=== PATIENT | female | born 1980 | race African-American/Black ===

== ENCOUNTER 2023-06-17 08:03 | Emergency (ER) | payer MEDICAID ==
[~2023-06-17] VITALS: Ht 165.1 cm; Wt 90.0 kg
[~2023-06-17 08:03] MED LIST: AMLO5TAB88 MT; ASPI-1497 MT; BENA10TA74 MT; FERR325T6 MT; FLUT9.9S BOTHNSTRLS; GLIM2TAB30 MT; LORA10TA7 MT; METF-416 MT; PNV1TABL76 MT; PROP20TA7 MT; PROP50TA3 MT; SULF1TAB48 MT
[2023-06-17 08:07] VITALS: O2SAT 99
[2023-06-17] MEDS ORDERED: ONDANSETRON HCL 4MG/2ML INJ IV STA (08:54)
[2023-06-17] MEDS ORDERED: KETOROLAC 60MG/2ML VIAL IM STA (08:54)
[2023-06-17 09:53] LABS: HEMOGLOBIN. 9.8 g/dL (12.0-16.0); MEAN CORPUSCULAR HEMOGLOBIN 24.6 pg (28.0-32.0); MEAN CORPUSCULAR HGB CONC 31.6 g/dL (31.0-37.0); MEAN CORPUSCULAR VOLUME 77.9 fL (81.0-99.0); MEAN PLATELET VOLUME 8.3 fl (7.4-10.4); PLATELET 396 x1000/uL (130-400); RED BLOOD CELL COUNT 3.99 mill/uL (4.2-5.4); RED CELL DISTRIBUTION WIDTH 15.7 % (11.6-14.6); WHITE BLOOD COUNT 13.6 x1000/uL (4.5-11.0)
[2023-06-17 09:57] LABS: DIFFERENTIAL COMMENT 1
[2023-06-17 10:11] LABS: ALANINE AMINOTRANSFERASE 16 IU/L (10-49); ALBUMIN 4.2 g/dL (3.2-4.8); ASPARTATE AMINOTRANSFERASE 13 IU/L (<34); BILIRUBIN TOTAL 0.5 mg/dL (0.1-1.0); CALCIUM 9.2 mg/dL (8.7-10.4); CARBON DIOXIDE 28 mEq/L (21-32); CHLORIDE 99 mEq/L (98-107); CREATININE 0.6 mg/dL (0.6-1.0); GLUCOSE 282 mg/dL (70-105); POTASSIUM 3.8 mEq/L (3.5-5.1); PROTEIN TOTAL 7.2 g/dL (6.0-8.3); SODIUM 134 mEq/L (136-145); UREA NITROGEN BLOOD 6 mg/dL (9-23)
[2023-06-17] MEDS ORDERED: AMLODIPINE 10MG TABLET PO ONE (11:00)
[2023-06-17 11:07] LABS: CLARITY URINE CLEAR (CLEAR); COLOR URINE ORANGE (YELLOW); GLUCOSE URINE 3+ (NEGATIVE); KETONES URINE 3+ (NEGATIVE); LEUKOCYTE ESTERASE URINE NEGATIVE (NEGATIVE); NITRITE URINE NEGATIVE (NEGATIVE); OCCULT BLOOD URINE 3+ (NEGATIVE); PROTEIN URINE 1+ (NEGATIVE); SPECIFIC GRAVITY URINE 1.024 (1.005-1.030)
[2023-06-17] MEDS ORDERED: SODIUM CHLORIDE 0.9% 1,000 ML IV ONE (11:30)
[2023-06-17 12:01] LABS: MICROCYTOSIS 1+; PLATELET ESTIMATE NORMAL
[2023-06-17 12:14] LABS: RBC URINE TNTC /hpf (0-2); SQUAMOUS EPITHELIAL CELL URINE 1+ /lpf (RARE/1+)
[2023-06-17 12:15] LABS: BACTERIA URINE TRACE; WBC URINE 0-2 /hpf (0-2)
[2023-06-17 15:16] LABS: HCG SCREEN NEGATIVE
[2023-06-17 16:54] VITALS: BP 150/78; PULSE 86; RESP 16; TEMP 98
== END 2023-06-17 16:56 | disposition home or self-care (01) ==
LOC: ER 08:03
DX: R10.13 Epigastric pain (principal); I10 Essential (primary) hypertension; E11.9 Type 2 diabetes mellitus without complications; Z88.8 Allergy status to other drugs, medicaments and biological substances
CPT/HCPCS: 80053; 81003; 84703; 83690; 85025; 36415; 74176; 96361; 96372; 96374; 99285; J1885; J2405; Z7610 ×4

== ENCOUNTER 2023-06-18 15:04 | Inpatient (IN) | payer MEDICAID ==
[~2023-06-18] VITALS: Ht 172.7 cm; Wt 113.4 kg
[2023-06-18] MEDS ORDERED: ONDANSETRON HCL 4MG/2ML INJ IV STA (15:10)
[2023-06-18] MEDS ORDERED: MORPHINE SULFATE 4 MG/ML CPJ (NOT FOR IM USE) IV STA (15:10)
[2023-06-18] MEDS ORDERED: SODIUM CHLORIDE 0.9% 1,000 ML IV ONE (15:15)
[2023-06-18] MEDS ORDERED: KETOROLAC 15MG/ML VIAL IV ONE (15:45)
[2023-06-18 18:31] LABS: BASOPHILS % 0.4 % (0.0-2.0); DIFFERENTIAL COMMENT 0; EOSINOPHILS % 0.4 % (0.0-5.0); HEMATOCRIT. 32.6 % (36.0-48.0); HEMOGLOBIN. 10.4 g/dL (12.0-16.0); LYMPHOCYTES % 8.4 % (20.0-50.0); MEAN CORPUSCULAR HEMOGLOBIN 24.9 pg (28.0-32.0); MEAN CORPUSCULAR HGB CONC 31.9 g/dL (31.0-37.0); MEAN CORPUSCULAR VOLUME 77.9 fL (81.0-99.0); MEAN PLATELET VOLUME 8.2 fl (7.4-10.4); MONOCYTES % 2.7 % (2.0-8.0); NEUTROPHILS % 88.1 % (40.0-76.0); PLATELET 418 x1000/uL (130-400); RED BLOOD CELL COUNT 4.18 mill/uL (4.2-5.4); RED CELL DISTRIBUTION WIDTH 15.9 % (11.6-14.6); WHITE BLOOD COUNT 12.9 x1000/uL (4.5-11.0)
[2023-06-18 18:54] LABS: ALANINE AMINOTRANSFERASE 19 IU/L (10-49); ALBUMIN 4.3 g/dL (3.2-4.8); ASPARTATE AMINOTRANSFERASE 16 IU/L (<34); BILIRUBIN TOTAL 0.4 mg/dL (0.1-1.0); CALCIUM 9.1 mg/dL (8.7-10.4); CARBON DIOXIDE 26 mEq/L (21-32); CHLORIDE 99 mEq/L (98-107); CREATININE 0.6 mg/dL (0.6-1.0); GLUCOSE 249 mg/dL (70-105); POTASSIUM 3.2 mEq/L (3.5-5.1); PROTEIN TOTAL 7.5 g/dL (6.0-8.3); SODIUM 135 mEq/L (136-145); UREA NITROGEN BLOOD 5 mg/dL (9-23)
[2023-06-18 19:04] LABS: HCG SCREEN NEGATIVE
[2023-06-18] MEDS ORDERED: KETOROLAC 15MG/ML VIAL IV SCH (21:30)
[2023-06-18] MEDS ORDERED: ONDANSETRON HCL 4MG/2ML INJ IV SCH (21:30)
[2023-06-19] VITALS (8 sets, daily range): BP systolic 146–175; BP diastolic 74–111; PULSE 18–90; RESP 18–20; TEMP 97–98.6
[2023-06-19] MEDS ORDERED: AMLODIPINE 10MG TABLET PO NR (01:00)
[2023-06-19] MEDS ORDERED: DEXT 5%/0.45% NACL 1000ML 1,000 ML IV SCH (01:15)
[2023-06-19] MEDS: ONDANSETRON HCL 4MG/2ML INJ IV PRN ×4 (01:17→15:10)
[2023-06-19] MEDS: BENAZEPRIL 10MG TABLET PO SCH ×3 (03:02→21:16)
[2023-06-19] MEDS ORDERED: GLIMEPIRIDE 2MG TABLET PO SCH (07:00)
[2023-06-19] MEDS: PROPRANOLOL HCL 10MG TABLET PO SCH ×2 (08:56→18:23)
[2023-06-19] MEDS: METFORMIN HCL 500MG TABLET PO SCH ×3 (08:57→18:22)
[2023-06-19] MEDS: AMLODIPINE 10MG TABLET PO SCH (08:57)
[2023-06-19] MEDS: LORATADINE 10MG TABLET PO SCH (08:58)
[2023-06-19] MEDS ORDERED: POTASSIUM CHLORIDE 20MEQ TABLET SR PO SCH (09:00)
[2023-06-19 12:04] LABS: CLARITY URINE SL HAZY (CLEAR); COLOR URINE YELLOW (YELLOW); GLUCOSE URINE 2+ (NEGATIVE); KETONES URINE 2+ (NEGATIVE); PROTEIN URINE NEGATIVE (NEGATIVE)
[2023-06-19 12:05] LABS: LEUKOCYTE ESTERASE URINE NEGATIVE (NEGATIVE); NITRITE URINE NEGATIVE (NEGATIVE); OCCULT BLOOD URINE 3+ (NEGATIVE); UROBILINOGEN URINE 0.2 E.U./dL (0.2-1.0)
[2023-06-19 12:17] LABS: BACTERIA URINE 1+; RBC URINE 50-100 /hpf (0-2); SQUAMOUS EPITHELIAL CELL URINE 1+ /lpf (RARE/1+); YEAST URINE NONE SEEN
[2023-06-19] MEDS ORDERED: DEXTROSE 50% WATER 50ML SYRINGE IV PRN (13:30)
[2023-06-19] MEDS ORDERED: BENAZEPRIL 10MG TABLET PO SCH (13:45)
[2023-06-19] MEDS ORDERED: BENAZEPRIL 10MG TABLET PO NR (13:53)
[2023-06-19] MEDS ORDERED: SODIUM CHLORIDE 0.9% 1,000 ML IV SCH (14:15)
[2023-06-19] MEDS: BLOOD SUGAR DIAGNOSTIC STRIP TEST SCH ×2 (17:35→21:20)
[2023-06-19] MEDS: METOCLOPRAMIDE HCL 10MG/2ML VIAL IV SCH ×2 (18:24→23:57)
[2023-06-19] MEDS: INSULIN LISPRO 100 UNITS/ML SUBCUT SCH ×2 (18:31→21:19)
[2023-06-20] VITALS (7 sets, daily range): BP systolic 108–171; BP diastolic 77–104; PULSE 64–85; RESP 17–20; TEMP 98–98.8; O2SAT 100
[2023-06-20] MEDS ORDERED: CLONIDINE 0.1MG TABLET PO PRN (00:45)
[2023-06-20] MEDS ORDERED: CLONIDINE 0.2MG TABLET PO PRN (04:30)
[2023-06-20] MEDS: METOCLOPRAMIDE HCL 10MG/2ML VIAL IV SCH ×2 (06:48→12:02)
[2023-06-20] MEDS: BLOOD SUGAR DIAGNOSTIC STRIP TEST SCH ×2 (06:48→12:02)
[2023-06-20] MEDS: METFORMIN HCL 500MG TABLET PO SCH (08:12)
[2023-06-20] MEDS: INSULIN LISPRO 100 UNITS/ML SUBCUT SCH ×2 (08:24→13:47)
[2023-06-20] MEDS: PROPRANOLOL HCL 10MG TABLET PO SCH (09:09)
[2023-06-20] MEDS: AMLODIPINE 10MG TABLET PO SCH (09:11)
[2023-06-20] MEDS: LORATADINE 10MG TABLET PO SCH (09:12)
[2023-06-20] MEDS: BENAZEPRIL 10MG TABLET PO SCH (09:12)
== END 2023-06-21 05:00 | disposition home or self-care (01) | DRG 48 ==
LOC: ER 15:04 → MICUSO 22:01 → EDBEDREQTM 22:05 → EDBEDREQ 22:05 → 6WST 06-19 00:09
PROVIDERS: ADMIT Internal Medicine; ATTEND Internal Medicine
DX: E11.43 Type 2 diabetes mellitus with diabetic autonomic (poly)neuropathy (principal); E87.1 Hypo-osmolality and hyponatremia; D64.9 Anemia, unspecified; D72.829 Elevated white blood cell count, unspecified; E11.65 Type 2 diabetes mellitus with hyperglycemia; E66.9 Obesity, unspecified; K52.9 Noninfective gastroenteritis and colitis, unspecified; K31.84 Gastroparesis; I10 Essential (primary) hypertension; I16.0 Hypertensive urgency; Z79.4 Long term (current) use of insulin; Z68.38 Body mass index [BMI] 38.0-38.9, adult
CPT/HCPCS: 36415; 76830; 76856; 80053; 81003; 82962; 84703; 85025; 99285; J1815; J2405; J2765; J7030

== ENCOUNTER 2024-07-21 04:02 | Inpatient (IN) | payer MEDICAID ==
[~2024-07-21] VITALS: Ht 172.7 cm; Wt 108.9 kg
[~2024-07-21 04:02] MED LIST changes: -BENA10TA74 MT; +INSU100I28 SQ; +LOSA100T33 MT; +METO-293 MT; +SITA100T11 MT; -SULF1TAB48 MT
[2024-07-21] MEDS ORDERED: PANTOPRAZOLE SODIUM 40 MG/VIAL IV STA (04:41)
[2024-07-21] MEDS ORDERED: METOCLOPRAMIDE HCL 10MG/2ML VIAL IV STA (04:41)
[2024-07-21] MEDS ORDERED: MORPHINE SULFATE 4 MG/ML INJ (FOR IV/IM USE) IV STA (04:41)
[2024-07-21 05:50] LABS: HEMATOCRIT. 34.2 % (36.0-48.0); MEAN CORPUSCULAR HGB CONC 32.1 g/dL (31.0-37.0); MEAN CORPUSCULAR VOLUME 81.1 fL (81.0-99.0); MEAN PLATELET VOLUME 8.6 fl (7.4-10.4); PLATELET 345 x1000/uL (130-400); RED BLOOD CELL COUNT 4.22 mill/uL (4.2-5.4); RED CELL DISTRIBUTION WIDTH 16.1 % (11.6-14.6); WHITE BLOOD COUNT 13.2 x1000/uL (4.5-11.0)
[2024-07-21 05:54] LABS: CHLORIDE 102 mEq/L (98-107); SODIUM 139 mEq/L (136-145)
[2024-07-21 05:56] LABS: CALCIUM 8.9 mg/dL (8.7-10.4); CARBON DIOXIDE 22 mEq/L (21-32)
[2024-07-21 06:01] LABS: GLUCOSE 379 mg/dL (70-105); UREA NITROGEN BLOOD 17 mg/dL (9-23)
[2024-07-21 06:03] LABS: ALANINE AMINOTRANSFERASE 22 IU/L (10-49); ALBUMIN 4.3 g/dL (3.2-4.8); ASPARTATE AMINOTRANSFERASE 19 IU/L (<34); BILIRUBIN DIRECT 0.3 mg/dL (<=3.0); BILIRUBIN TOTAL 0.8 mg/dL (0.1-1.0); PROTEIN TOTAL 7.7 g/dL (6.0-8.3)
[2024-07-21 06:09] LABS: CREATININE 1.7 mg/dL (0.6-1.0); ETHANOL BLOOD < 10 mg/dL (<10)
[2024-07-21 06:28] LABS: DIFFERENTIAL COMMENT 1
[2024-07-21] MEDS: METOCLOPRAMIDE HCL 10MG/2ML VIAL IV NR (06:32)
[2024-07-21] MEDS: MORPHINE SULFATE 4 MG/ML INJ (FOR IV/IM USE) IV NR (06:33)
[2024-07-21] MEDS: SODIUM CHLORIDE 0.9% 1,000 ML IV ONE (06:33)
[2024-07-21] MEDS: PANTOPRAZOLE SODIUM 40 MG/VIAL IV NR (06:56)
[2024-07-21 07:10] LABS: HCG SCREEN NEGATIVE
[2024-07-21] MEDS: HYDRALAZINE 20MG/ML VIAL IV NR (07:45)
[2024-07-21 08:14] LABS: PLATELET ESTIMATE NORMAL
[2024-07-21] MEDS ORDERED: IOHEXOL-300 100 ML BOTTLE ONE (10:20)
[2024-07-21 20:00] VITALS: BP_SYST 190; BP_SYST 196; BP_DIAS 121; PULSE 98; RESP 18; TEMP 36.55848; TEMP 36.5848; O2SAT 99
[2024-07-21] MEDS ORDERED: ACETAMINOPHEN 325MG TABLET PO PRN ×2 (20:00)
[2024-07-21] MEDS ORDERED: DIPHENHYDRAMINE 50MG/ML VIAL IV PRN (20:00)
[2024-07-21] MEDS ORDERED: MORPHINE SULFATE 2 MG/ML INJ (NOT FOR IM USE) IV PRN (20:00)
[2024-07-21] MEDS ORDERED: DEXTROSE 50% WATER 50ML SYRINGE IV PRN (20:00)
[2024-07-21] MEDS ORDERED: ZOLPIDEM TARTRATE 5MG TABLET PO PRN (20:00)
[2024-07-21] MEDS: INSULIN LISPRO 100 UNITS/ML SUBCUT SCH (21:00)
[2024-07-21] MEDS: POTASSIUM CHLORIDE 20MEQ TABLET SR PO NR (21:11)
[2024-07-21] MEDS: PROPRANOLOL HCL 10MG TABLET PO SCH (21:11)
[2024-07-21] MEDS: AMLODIPINE 5MG TABLET PO SCH (21:11)
[2024-07-21] MEDS: LOSARTAN 100 MG TABLET PO SCH (21:32)
[2024-07-21] MEDS: BLOOD SUGAR DIAGNOSTIC STRIP TEST SCH (21:36)
[2024-07-21] MEDS: INSULIN GLARGINE 100 UNITS/ML SUBCUT SCH (22:53)
[2024-07-21] MEDS: SODIUM CHL 0.45% + KCL 20MEQ/L 1,000 ML IV SCH (22:54)
[2024-07-22] VITALS: BP 173/113; PULSE 92; RESP 18; TEMP 36.6696; O2SAT 100
[2024-07-22] MEDS: CLONIDINE 0.1MG TABLET PO PRN (00:57)
[2024-07-22] MEDS: METOCLOPRAMIDE HCL 10MG TABLET PO SCH (00:57)
[2024-07-22 04:00] VITALS: BP 138/93; PULSE 90; RESP 18; TEMP 36.22512; O2SAT 99
[2024-07-22] MEDS: GLIMEPIRIDE 2MG TABLET PO SCH (06:33)
[2024-07-22 08:00] VITALS: BP 138/90; PULSE 99; RESP 20; TEMP 36.50292; O2SAT 99
[2024-07-22] MEDS: FLUTICASONE PROPIONATE 50MCG/SPRAY BOTTLE BOTHNSTRLS SCH (09:55)
[2024-07-22] MEDS: LORATADINE 10MG TABLET PO SCH (09:55)
[2024-07-22] MEDS: PANTOPRAZOLE SODIUM 40 MG/VIAL IV SCH (09:56)
[2024-07-22 11:22] LABS: BASOPHILS % 0.6 % (0.0-2.0); EOSINOPHILS % 0.6 % (0.0-5.0); HEMOGLOBIN. 10.7 g/dL (12.0-16.0); LYMPHOCYTES % 23.8 % (20.0-50.0); MEAN CORPUSCULAR HEMOGLOBIN 26.2 pg (28.0-32.0); MEAN CORPUSCULAR HGB CONC 31.4 g/dL (31.0-37.0); MEAN CORPUSCULAR VOLUME 83.4 fL (81.0-99.0); MEAN PLATELET VOLUME 9.2 fl (7.4-10.4); MONOCYTES % 6.5 % (2.0-8.0); NEUTROPHILS % 68.5 % (40.0-76.0); PLATELET 111 x1000/uL (130-400); RED BLOOD CELL COUNT 4.08 mill/uL (4.2-5.4); RED CELL DISTRIBUTION WIDTH 16.3 % (11.6-14.6); WHITE BLOOD COUNT 10.3 x1000/uL (4.5-11.0)
[2024-07-22 11:38] LABS: T4 FREE 1.14 ng/dL (0.89-1.76)
[2024-07-22 11:39] LABS: THYROID STIMULATING HORMONE 3.59 uIU/mL (0.55-4.78)
[2024-07-22 11:40] LABS: CHLORIDE 102 mEq/L (98-107); POTASSIUM 3.8 mEq/L (3.5-5.1); SODIUM 137 mEq/L (136-145)
[2024-07-22 11:41] LABS: CALCIUM 8.9 mg/dL (8.7-10.4); CARBON DIOXIDE 24 mEq/L (21-32)
[2024-07-22 11:46] LABS: CREATININE 1.3 mg/dL (0.6-1.0); GLUCOSE 260 mg/dL (70-105); UREA NITROGEN BLOOD 13 mg/dL (9-23)
[2024-07-22 12:00] VITALS: BP 136/94; PULSE 95; RESP 18; TEMP 36.78072; O2SAT 99
[2024-07-22 16:00] VITALS: BP 137/95; PULSE 95; RESP 20; TEMP 36.3918; O2SAT 100
[2024-07-22] MEDS ORDERED: NALOXONE HCL 0.4MG/ML VIAL IV PRN (18:45)
[2024-07-22 20:00] VITALS: BP 142/95; PULSE 95; RESP 20; TEMP 36.44736; O2SAT 100
[2024-07-22] MEDS: MAGNESIUM 2 G PREMIX 50 ML IV NR (20:28)
[2024-07-23] VITALS: BP 136/82; PULSE 92; RESP 20; TEMP 36.50292; O2SAT 100
[2024-07-23 04:00] VITALS: BP 138/85; PULSE 90; RESP 20; TEMP 36.44736; O2SAT 99
[2024-07-23 04:14] LABS: CLARITY URINE CLOUDY (CLEAR); COLOR URINE YELLOW (YELLOW); GLUCOSE URINE NEGATIVE (NEGATIVE); KETONES URINE NEGATIVE (NEGATIVE); LEUKOCYTE ESTERASE URINE 2+ (NEGATIVE); NITRITE URINE NEGATIVE (NEGATIVE); OCCULT BLOOD URINE NEGATIVE (NEGATIVE); PH URINE 5.5 (4.5-8.0); PROTEIN URINE 1+ (NEGATIVE); SPECIFIC GRAVITY URINE 1.012 (1.005-1.030); UROBILINOGEN URINE 0.2 E.U./dL (0.2-1.0)
[2024-07-23 04:38] LABS: SQUAMOUS EPITHELIAL CELL URINE 3+ /lpf (RARE/1+)
[2024-07-23 04:43] LABS: BACTERIA URINE 1+; RBC URINE 0-2 /hpf (0-2)
[2024-07-23 16:50] VITALS: BP 135/80; PULSE 90; RESP 18; TEMP 36.33624; O2SAT 99
[2024-07-23 20:00] VITALS: BP 107/68; PULSE 80; RESP 19; TEMP 36.55848; O2SAT 99
[2024-07-24] VITALS: BP 120/80; PULSE 75; RESP 19; TEMP 36.3918; O2SAT 99
[2024-07-24 04:00] VITALS: BP 128/77; PULSE 80; RESP 19; TEMP 36.3918; TEMP 36.39180; O2SAT 99
[2024-07-24 08:22] VITALS: BP 128/77; PULSE 80; TEMP 97.5; O2SAT 99
[2024-07-24 08:32] VITALS: PULSE 80
== END 2024-07-24 09:39 | disposition home or self-care (01) | DRG 249 ==
LOC: ER 04:02 → 8EST 06:03 → EDBEDREQ 06:04
PROVIDERS: ADMIT Internal Medicine; ATTEND Internal Medicine
DX: K52.9 Noninfective gastroenteritis and colitis, unspecified (principal); E07.9 Disorder of thyroid, unspecified; I10 Essential (primary) hypertension; E11.65 Type 2 diabetes mellitus with hyperglycemia; E87.6 Hypokalemia; Z90.710 Acquired absence of both cervix and uterus; Z91.048 Other nonmedicinal substance allergy status
CPT/HCPCS: 36415; 74177; 80048; 80076; 80320; 81003; 82962; 83036; 83605; 83735; 84100; 84439; 84443; 84703; 85025; 99285; A4606; J0360; J1815; J2270; J2470; J2765; J3475; J3480; J7030; J8597; Q9967; G0480